=== PATIENT | male | born 1995 | race Native Hawaiian/Other Pacific Islander ===

== ENCOUNTER 2016-12-17 08:47 | Emergency (ER) | payer OTHER ==
[~2016-12-17] VITALS: Ht 181.6 cm; Wt 92.0 kg
[~2016-12-17 08:47] MED LIST: ALBU6.7H INH; FLUT1SPR9; PRED20 PO
[2016-12-17 08:48] VITALS: BP 133/85; PULSE 68; RESP 20; TEMP 97.8; O2SAT 98
[2016-12-17] MEDS ORDERED: MORPHINE SULFATE 4 MG/ML INJ IV PUSH ONE (09:30)
[2016-12-17] MEDS ORDERED: KETOROLAC TROMETHAMINE 30 MG/ML (IVP) VIAL IV PUSH ONE (09:30)
[2016-12-17] MEDS ORDERED: ONDANSETRON HCL 4 MG/2 ML VIAL IV PUSH ONE (09:30)
[2016-12-17] MEDS ORDERED: SODIUM CHLOR 0.9% 1000 ML INJ 1,000 ML IV ONE (09:30)
--- NOTE | 2016-12-17 09:39 | PD ---
HPI Chief Complaint: Flank/Kidney Pain Time Seen by Provider: 09:12 Travel History International Travel<30 days: No Contact w/Intl Traveler<30days: No Traveled to known affect area: No History of Present Illness HPI This is a 21-year-old male who presents to the emergency department with pain in his right flank that woke him up around 5:30 in the morning, constant, moderate severity now about a 6 out of 10, with no associated vomiting, fevers or chills. He denies any hematuria or dysuria. He says he was diagnosed with a kidney stone about 3 months ago. He thinks it passed on its own and it didn' t require surgery. PFSH Past Medical History Kidney Stones: Yes Past Surgical History Surgical History: No Previous Surgery Social History Alcohol Use: No Tobacco Use: Yes (1 PPD) Substance Use: Yes (MARIJUANA) Allergies-Medications (Allergen,Severity, Reaction): Coded Allergies: No Known Allergies (Unverified , 08/15/15) Reported Meds & Prescriptions Reported Meds & Active Scripts Active No Active Prescriptions or Reported Medications Review of Systems Except as stated in HPI: all other systems reviewed are Neg Physical Exam Narrative GENERAL:Well appearing, no acute distress, resting comfortably in bed SKIN: Focused skin assessment warm and dry. HEAD: Atraumatic. Normocephalic. EYES: Pupils equal and round. No injection or drainage. ENT: Moist mucous membranes NECK: Trachea midline. CARDIOVASCULAR: Regular rate and rhythm. No murmur appreciated. RESPIRATORY: Clear to auscultation. Breath sounds equal bilaterally. GASTROINTESTINAL: Abdomen soft, non-tender, nondistended. : Right CVA tenderness MUSCULOSKELETAL: No obvious deformities. NEUROLOGICAL: Awake and alert. No obvious cranial nerve deficits. Moving all extremities. PSYCHIATRIC: Appropriate mood and affect; insight and judgment normal. Data Data Last Documented VS Vital Signs Date Time Temp Pulse Resp B/P (MAP) Pulse Ox O2 Delivery O2 Flow Rate FiO2 12/17/16 09:12 18 12/17/16 08:48 97.8 68 133/85 (101) 98 Room Air Orders Orders Complete Blood Count With Diff (12/17/16 09:19) Basic Metabolic Panel (Bmp) (12/17/16 09:19) ^ Insert Iv (12/17/16 09:19) Urinalysis - C+S If Indicated (12/17/16 09:19) Ed Poc Ultrasound (12/17/16 ) Sodium Chlor 0.9% 1000 Ml Inj (Ns 1000 M (12/17/16 09:30) Ketorolac Inj (Toradol Inj) (12/17/16 09:30) Morphine Inj (Morphine Inj) (12/17/16 09:30) Ondansetron Inj (Zofran Inj) (12/17/16 09:30) Ct Abd/Pel W/O Iv Contrast (12/17/16 ) Labs Laboratory Tests Test 12/17/16 09:24 12/17/16 09:26 White Blood Count 10.1 TH/MM3 Red Blood Count 5.00 MIL/MM3 Hemoglobin 15.2 GM/DL Hematocrit 44.3 % Mean Corpuscular Volume 88.7 FL Mean Corpuscular Hemoglobin 30.4 PG Mean Corpuscular Hemoglobin Concent 34.2 % Red Cell Distribution Width 13.0 % Platelet Count 260 TH/MM3 Mean Platelet Volume 8.5 FL Neutrophils (%) (Auto) 60.0 % Lymphocytes (%) (Auto) 24.9 % Monocytes (%) (Auto) 8.3 % Eosinophils (%) (Auto) 6.1 % Basophils (%) (Auto) 0.7 % Neutrophils # (Auto) 6.1 TH/MM3 Lymphocytes # (Auto) 2.5 TH/MM3 Monocytes # (Auto) 0.8 TH/MM3 Eosinophils # (Auto) 0.6 TH/MM3 Basophils # (Auto) 0.1 TH/MM3 CBC Comment DIFF FINAL Differential Comment Blood Urea Nitrogen 10 MG/DL Creatinine 0.89 MG/DL Random Glucose 93 MG/DL Calcium Level 8.6 MG/DL Sodium Level 140 MEQ/L Potassium Level 3.8 MEQ/L Chloride Level 110 MEQ/L Carbon Dioxide Level 23.2 MEQ/L Anion Gap 7 MEQ/L Estimat Glomerular Filtration Rate 109 ML/MIN Urine Color YELLOW Urine Turbidity CLEAR Urine pH 6.0 Urine Specific [place] 1.011 Urine Protein NEG mg/dL Urine Glucose (UA) NEG mg/dL Urine Ketones NEG mg/dL Urine Occult Blood TRACE Urine Nitrite NEG Urine Bilirubin NEG Urine Urobilinogen LESS THAN 2.0 MG/DL Urine Leukocyte Esterase NEG Urine RBC 5 /hpf Urine WBC 1 /hpf Urine Squamous Epithelial Cells <1 /hpf Urine Mucus FEW /lpf Microscopic Urinalysis Comment CULT NOT INDICATED MDM Medical Decision Making Medical Screen Exam Complete: Yes Emergency Medical Condition: Yes Interpretation(s) Afebrile, no tachycardia, normotensive No leukocytosis Electrolytes are reassuring Urinalysis: 5 RBCs, no infection CT abdomen and pelvis: 6 mm stone at the right UVJ Differential Diagnosis Nephrolithiasis, hydronephrosis, urinary tract infection, pyelonephritis Narrative Course This is a 21-year-old male who presents to the emergency department with symptoms classic for kidney stone. Labs were obtained which were reassuring. He has no signs of infection. He was given a liter of IV fluid, Toradol and morphine and his symptoms have improved. [id number] ultrasound demonstrated some mild hydronephrosis and hydroureter of the right kidney. A CT abdomen and pelvis was obtained which demonstrates a 6 mm stone at the UVJ. Given the stone is fairly distal and the patient appears quite comfortable at think it's reasonable for him to attempt a trial of medical management and passage on its own. If he doesn't improve he should follow up with urology or return to the emergency department if his symptoms worsen. Patient will be discharged home. Diagnosis Primary Impression: Kidney stone Referrals: Rodri Pfeiffer DO Patient Instructions: General Instructions Additional Instructions: If you develop severe pain, inability to eat or drink, or fever return to the emergency department. Use a strainer to try to catch your stone. Take Lortab as needed for pain, and continue taking zofran as needed for nausea. Complete your course of tamsulosin. Follow up with urology as soon as possible. Med/Other Pt SpecificInfo: Prescription(s) given Scripts Tamsulosin (Flomax) 0.4 Mg Cap 0.4 MG PO HS for Manage Prostate Problems for 5 Days, #5 CAP 0 Refills Prov: Magy Euceda MD 12/17/16 Ondansetron Odt (Zofran Odt) 4 Mg Tab 4 MG SL Q6HR Y for Nausea/Vomiting, #15 TAB 0 Refills Prov: Magy Euceda MD 12/17/16 Hydrocodone-Acetaminophen (Lortab) 5-325 Mg Tab 1 TAB PO Q6H Y for PAIN, #10 TAB 0 Refills Prov: Magy Euceda MD 12/17/16 Disposition: 01 DISCHARGE HOME Condition: Stable Magy Euceda MD Dec 17, 2016 09:39
[2016-12-17 09:48] LABS: AUTOMATED NEUTROPHIL # 6.1 TH/MM3 (1.8-7.7); BASOPHIL # 0.1 TH/MM3 (0-0.2); BASOPHIL % 0.7 % (0.0-2.0); EOSINOPHIL # 0.6 TH/MM3 (0-0.4); EOSINOPHIL % 6.1 % (0.0-4.0); HEMATOCRIT 44.3 % (39.0-51.0); HEMO FLAGS DIFF FINAL; LYMPH % 24.9 % (9.0-44.0); LYMPHOCYTE # 2.5 TH/MM3 (1.0-4.8); MEAN CELL VOLUME 88.7 FL (80.0-100.0); MEAN CORPUSCULAR HEMOGLOBIN 30.4 PG (27.0-34.0); MEAN CORPUSCULAR HGB CONC 34.2 % (32.0-36.0); MONO % 8.3 % (0.0-8.0); PLATELET COUNT 260 TH/MM3 (150-450); WHITE BLOOD COUNT 10.1 TH/MM3 (4.0-11.0)
[2016-12-17 09:48] LABS: BLOOD, URINE TRACE (NEG); COMMENT (UR) CULT NOT INDICATED; CULTURE IF INDICATED CULT NOT INDICATED; GLUCOSE,URINE NEG (NEG); KETONE, URINE NEG (NEG); MUCUS URINE FEW /lpf (OCC); NITRITE,URINE NEG (NEG); SQUAMOUS EPITHELIAL CELL URINE <1 /hpf (0-5); URINE COLOR YELLOW (YELLW/STRAW)
[2016-12-17 10:02] LABS: BICARBONATE 23.2 MEQ/L (21.0-32.0); POTASSIUM 3.8 MEQ/L (3.5-5.1)
--- NOTE | 2016-12-17 11:07 | RADRPT ---
EXAM DATE/TIME: 12/17/2016 10:50 [facility] COMPARISON: No previous studies available for comparison. INDICATIONS : Right flank pain with diarrhea since this morning. ORAL CONTRAST: No oral contrast ingested. RADIATION DOSE: 8.37 CTDIvol (mGy) MEDICAL HISTORY : Renal calculi. SURGICAL HISTORY : None. ENCOUNTER: Initial ACUITY: 1 day PAIN SCALE: 6/10 LOCATION: Right flank TECHNIQUE: Volumetric scanning of the abdomen and pelvis was performed. Using automated exposure control and ad justment of the mA and/or kV according to patient size, radiation dose was kept as low as reasonably achievable to obtain optimal diagnostic quality images. DICOM format image data is available electro nically for review and comparison. FINDINGS: Lung bases are clear. Osseous structures demonstrate L5 spondylolysis. No pleural effusions. Spleen, pancreas, gallbladder, visualized portions of the liver, bilateral adrenal glands and left kidney are unremarkable. There is mild right-sided hydronephrosis and mild ureteral dilatation with a prominent right extrarenal pelvis. There is a calculus at the right ureterovesical junction measuring 5.9 mm m aximum at 131. Prostate unremarkable. Small bowel, large bowel and appendix are normal. CONCLUSION: 1. Mild hydronephrosis and hydroureter secondary to a calculus at the ureterovesical junction. 2. L5 spondylolysis. Franki Espitia MD on December 17, 2016 at 11:03 Board Certified Radiologist. This report was verified electronically.
[2016-12-17] MEDS ORDERED: TAMS5CAP PO (11:17)
[2016-12-17] MEDS ORDERED: ZOFR4TAB3 SL (11:17)
[2016-12-17] MEDS ORDERED: HYDR-3533 PO (11:17)
[2016-12-17 11:26] VITALS: BP 115/74
== END 2016-12-17 11:33 | disposition home or self-care (01) ==
LOC: NEPD 08:47
DX: N13.2 Hydronephrosis with renal and ureteral calculous obstruction (principal); N13.4 Hydroureter; F17.210 Nicotine dependence, cigarettes, uncomplicated; F12.90 Cannabis use, unspecified, uncomplicated
CPT/HCPCS: 74176; 80048; 81001; 85025; 96361; 96374; 96375; 99285; J1885; J2270; J2405; J7030

== ENCOUNTER 2016-12-18 00:49 | Emergency (ER) | payer OTHER ==
[~2016-12-18 00:49] MED LIST changes: -ALBU6.7H INH; -FLUT1SPR9; +HYDR-3533 PO; -PRED20 PO; +TAMS5CAP PO; +ZOFR4TAB3 SL
[2016-12-18 00:50] VITALS: BP 121/87; PULSE 64; RESP 16; TEMP 97.4; O2SAT 99
--- NOTE | 2016-12-18 03:37 | PD ---
HPI Chief Complaint: Laceration/Skin Injury Time Seen by Provider: 03:34 Travel History International Travel<30 days: No Contact w/Intl Traveler<30days: No Traveled to known affect area: No History of Present Illness HPI 21-year-old male presents to emergency department with a injury to his right great toe which occurred earlier this evening when he had ran into a curb with his sandals on. It causes a small laceration to the tip of his toe. He was just seen here earlier this morning for a kidney stone. He states that he has not been able to get his prescriptions filled. He would like to get a dose of his medication. He was prescribed Flomax and hydrocodone. [facility] Past Medical History Narrative Medical Ureterolithiasis Kidney Stones: Yes Social History Alcohol Use: No Tobacco Use: Yes (1 PPD) Substance Use: Yes (MARIJUANA) Allergies-Medications (Allergen,Severity, Reaction): Coded Allergies: No Known Allergies (Unverified , 12/18/16) Reported Meds & Prescriptions Reported Meds & Active Scripts Active Flomax (Tamsulosin HCl) 0.4 Mg Cap 0.4 Mg PO HS 5 Days Zofran Odt (Ondansetron Odt) 4 Mg Tab 4 Mg SL Q6HR PRN Lortab (Hydrocodone-Acetaminophen) 5-325 Mg Tab 1 Tab PO Q6H PRN Review of Systems Except as stated in HPI: all other systems reviewed are Neg Gastrointestinal: No: Nausea, Vomiting, Diarrhea Genitourinary: Positive: Frequency, Flank Pain, No: Dysuria, Hematuria Skin: Positive Other (laceration right great toe) Physical Exam Narrative GENERAL: This is a well-nourished, well-developed patient, in no apparent distress. SKIN: No rashes, ecchymoses or lesions. Warm and dry. HEAD: Atraumatic. Normocephalic. EYES: PERRL, EOMI, no discharge or injection. No scleral icterus. EARS: Clear NOSE: Nasal turbinates appear normal. THROAT: Mucosa pink and moist. Airway patent. NECK: Trachea midline. supple, moves head freely. LUNGS: Clear to auscultation. CV: Regular in rhythm. ABDOMEN: Soft nontender. EXT: No clubbing cyanosis or edema. Patient has an avulsion laceration to the tip of the right great toe. This is nonsuturable. This is just through the dermis. The wound is cleansed with Betadine, saline. Data Data Last Documented VS Vital Signs Date Time Temp Pulse Resp B/P (MAP) Pulse Ox O2 Delivery O2 Flow Rate FiO2 12/18/16 00:50 97.4 64 16 121/87 (98) 99 Room Air Orders Orders Acetamin-Hydrocod 325-5 Mg ([place] 5-325 (12/18/16 03:45) Tamsulosin (Flomax) (12/18/16 03:45) MDM Medical Decision Making Medical Screen Exam Complete: Yes Emergency Medical Condition: Yes Medical Record Reviewed: Yes Differential Diagnosis MDM: High Differential diagnoses: Fracture, sprain, strain, dislocation, contusion, neurovascular injury Narrative Course Patient has a superficial avulsion laceration to the tip of the right great toe. The wound is been cleansed and dressed by the nursing staff. Patient is given 2 Lortab 5 mg by mouth and Flomax 0.4 mg by mouth. Patient was just seen earlier this morning for a kidney stone. States that he has not been able to get his medicine and he would like a dose this evening due to his pain. Diagnosis Primary Impression: right great toe skin avulsion Patient Instructions: Narcotic given in the ED, General Instructions Additional Instructions: Rest. Elevation. Ice. Daily wound care with soap, water, Neosporin. Your prescriptions in the morning. Follow-up with the recommendations from this morning for a kidney stone. Follow-up with the clinic at school in 1 week for recheck of your toe. Return to the ER if any problems. Med/Other Pt SpecificInfo: Wound Care Disposition: 01 DISCHARGE HOME Condition: Stable Harris Marie Dec 18, 2016 03:37
[2016-12-18] MEDS ORDERED: ACETAMINOPHEN/HYDROcodone 325 MG/5 MG TAB PO ONE (03:45)
[2016-12-18] MEDS ORDERED: TAMSULOSIN HCL 0.4 MG CAP PO ONE (03:45)
== END 2016-12-18 04:05 | disposition home or self-care (01) ==
LOC: NEPD 00:49
DX: S91.111A Laceration without foreign body of right great toe without damage to nail, initial encounter (principal); N20.0 Calculus of kidney; F17.200 Nicotine dependence, unspecified, uncomplicated; W22.8XXA Striking against or struck by other objects, initial encounter; Z79.899 Other long term (current) drug therapy
CPT/HCPCS: 99283